=== PATIENT | female | born 2000 | race Hispanic/Latino ===

== ENCOUNTER 2022-10-26 14:23 | Emergency (ER) | payer BC ==
[~2022-10-26] VITALS: Ht 160 cm; Wt 80.4 kg
[2022-10-26] MEDS ORDERED: IBUPROFEN 600 MG TABLET ONE (14:52)
[2022-10-26] MEDS ORDERED: IBUPROFEN 600 MG TABLET PO ONE (15:00)
[2022-10-26 15:07] LABS: APPEARANCE,URINE CLEAR (CLEAR); BILIRUBIN,URINE NEGATIVE (NEGATIVE); COLOR,URINE LIGHT-YELLOW (YELLOW); GLUCOSE, URINE (UA) NEGATIVE (NEGATIVE); KETONES,URINE NEGATIVE (NEGATIVE); LEUKOCYTE ESTERASE ,URINE NEGATIVE Leu/uL (NEGATIVE); NITRATE,URINE NEGATIVE (NEGATIVE); OCCULT BLOOD,URINE SMALL (NEGATIVE); PH,URINE 5.5 (5.0-8.0); PROTEIN,URINE NEGATIVE (NEGATIVE); UROBILINOGEN,URINE 0.2 mg/dL (0.2-1.0)
[2022-10-26 15:12] LABS: HCG,QUALITATIVE URINE NEGATIVE (NEGATIVE)
[2022-10-26 15:16] LABS: SQUAMOUS EPITHELIAL CELL,UR RARE /HPF (0-2); WBC,URINE 0-1 /HPF (0-1)
[2022-10-26] MEDS ORDERED: D-ME118S47 PO (15:17)
[2022-10-26] MEDS ORDERED: IBUP-2070 PO (15:17)
[2022-10-26] MEDS ORDERED: MOLN200C PO (15:17)
[2022-10-26 15:36] VITALS: BP 121/80
== END 2022-10-26 15:43 | disposition home or self-care (01) ==
LOC: EDH 14:23
DX: U07.1 COVID-19 (principal)
CPT/HCPCS: 99283; 87635; 87880; 87804 ×2; 81001; 81025; C9803